=== PATIENT | female | born 1960 | race Caucasian/White ===

== ENCOUNTER → 2017-11-07 | Outpatient (CLI) | payer OTHER ==
[~2017-11-07] MED LIST: CALC500T6 PO; CHOL200025 PO; DOCU-416 PO; FLUO40CA67 PO; OXYC-865 PO; SILV20CR2 TP; SIMV5TAB60 PO; TAMO20TA24 PO; VALS1TAB63 PO; VALS1TAB67 PO
--- NOTE | 2017-11-08 10:10 | RADIOLOGY IMAGING REPORT ---
FACILITY: [facility] PATIENT NAME: KARRIE SCOTT : [id number] MR: [id number] V: [id number] EXAM DATE: [id number] ORDERING PHYSICIAN: ALONDRA SANCHEZ TECHNOLOGIST: Evi Chapman PROCEDURE:BILATERAL DIAGNOSTIC DIGITAL MAMMOGRAM WITH CAD ASSISTED INTERPRETATION & 3D TOMOSYNTHESIS COMPARISON:Prior mammograms 05/05/17, 10/01/16 INDICATIONS:HX OF BREAST CA FINDINGS: Moderately heterogeneous fibroglandular tissue is seen throughout the breasts. Again there is an area of postsurgical scaring with an architectural distortion in the medial upper Left breast. The scar appears to be lenora. Today's Left breast Ultrasound demonstrated slightly less scar tissue in the operate site. There is no evidence of malignant appearing mass, malignant appearing calcifications or other secondary sign of malignancy in either breast at this time. DIAGNOSTIC CATEGORY 2--BENIGN FINDING. RECOMMENDATIONS: ROUTINE MAMMOGRAM AND CLINICAL EVALUATION. IMPRESSION: BIRADS 2: Benign finding Loss scar tissue in the medial upper portion Left breast from previous lumpectomy it appears to be lenora. Dictated by: Mary Anne Alexis M.D. on 11/07/2017 at 17:11 Transcribed by: DANA on 11/08/2017 at 8:43 Approved by: Mary Anne Alexis M.D. on 11/08/2017 at 10:09 [facility]
--- NOTE | 2017-11-08 10:10 | RADIOLOGY IMAGING REPORT ---
[place] [facility] [place] NAME: KARRIE SCOTT : [id number] MR: [id number] V: [id number] EXAM DATE: ORDERING PHYSICIAN: ALONDRA SANCHEZ TECHNOLOGIST: Jayna Ramos PROCEDURE:US LEFT BREAST COMPARISON:Prior Left Breast Ultrasound 05/05/17 INDICATIONS:HX BREAST CA FINDINGS: In the approximate 11 o'clock position of the Left breast and location of previous lumpectomy again noted is an ovoid area of architectural distortion which appears less prominent when compared to the prior study. It now measures approximate 1.3 x 1.1 x 0.9cm as opposed to 1.35 x 1.1 x 0.9cm. The additional area seen previously just anterior to the site is not identified. DIAGNOSTIC CATEGORY 2--BENIGN FINDING. RECOMMENDATIONS: ROUTINE MAMMOGRAM AND CLINICAL EVALUATION. IMPRESSION: BIRADS 2: Benign finding The architectural distortion likely represented scar tissue in the 11 o'clock position Left breast appears slightly less prominent. Dictated by: Mary Anne Alexis M.D. on 11/07/2017 at 17:17 Transcribed by: DANA on 11/08/2017 at 8:52 Approved by: Mary Anne Alexis M.D. on 11/08/2017 at 10:09 [facility]
== END ==
LOC: MAMO 01:42
PROVIDERS: ATTEND Radiology Radiation Oncology
DX: R92.8 Other abnormal and inconclusive findings on diagnostic imaging of breast (principal)
CPT/HCPCS: 77062; 77066

== ENCOUNTER 2017-11-23 15:54 | Outpatient (RCR) | payer OTHER ==
[2017-11-22 15:11] LABS: PLATELET COUNT, AUTOMATED 264 K/uL (150-450)
[2017-11-23 16:02] VITALS: BP 112/77
--- NOTE | 2017-11-24 17:44 | ONCOLOGY FOLLOW UP NOTE ---
EVENT DATE: November 23, 2017 REASON FOR FOLLOWUP 1. Stage I ER/FL positive breast cancer. 2. Smoking. INTERIM HISTORY: Ramya returns to clinic for a follow-up visit today. Since our last visit, she has been feeling fairly well. She continues to work as a nurse. She has had some frustrations at work , related to staffing and other issues. She reports no new symptoms. She is tolerating tamoxifen without significant side effects. She is not missing doses. She has been making a very solid attempt to quit smoking. She recently had visited with a hypnotist, and had some brief success with quitting smoking. At most, she has been able to quit for a period of two weeks. She reports that usually somebody in her family or one of her friends will approach her with a cigarette and she will smoke again. She has also had periods of stress that will be a trigger for her smoking again. REVIEW OF SYSTEMS Otherwise negative, and all systems were reviewed. ONCOLOGIC HISTORY Stage I (pT1b) infiltrative ductal carcinoma of the left breast, diagnosed on October 26, 2016. * October 01, 2016: Routine screening mammogram shows left breast nodular area in zone 3 in the upper medial portion of the breast. * October 14, 2016: Left diagnostic mammogram and ultrasound. Mammogram shows a 6 mm nodule with obscured margins in the upper inner quadrant at 11 o' clock. Ultrasound shows a 5 x 3 mm nodule in this area at about 5 cm from the nipple. * October 26, 2016: Ultrasound guided core biopsy of the left breast nodule. Pathology shows an infiltrative ductal carcinoma, grade II. The tumor is estrogen receptor positive (90%), progesterone receptor positive (70%) and HER2 negative by FISH. The Ki-67 is estimated at 19.1%. P53 was absent. * November 11, 2016: Wire-guided surgical excision and sentinel lymph node evaluation. Surgical pathology reveals a 0.5 x 0.6 x 0.6 cm infiltrative ductal carcinoma, grade II. There was no evidence of lymphovascular invasion. Surgical margins were negative. Zero of 2 lymph nodes positive for tumor. This was staged as a pT1b N0 MX invasive ductal carcinoma. * November 2016 to December 2016: Adjuvant radiation therapy with Dr. Horner. * April 2017: Patient begins adjuvant endocrine therapy with tamoxifen. SOCIAL HISTORY The patient has smoked about five cigarettes a day for about forty years, but is quitting now. She has about two alcoholic beverages per day, usually wine with dinner. There is no history of illicit drug use. FAMILY HISTORY There is a family history of lung cancer in her aunt and testicular cancer in her uncle. PAST MEDICAL HISTORY 1. Reported history of osteopenia. 2. Tobacco dependence. 3. Hypercholesterolemia. 4. Hypertension. ALLERGIES SULFA. CURRENT MEDICATIONS 1. Calcium carbonate. 2. Vitamin D3. 3. Fluoxetine. 4. Silvadene cream p.r.n. 5. Simvastatin. 6. Valsartan/hydrochlorothiazide. 7, Tamoxifen 20 mg p.o. daily. VITAL SIGNS Temperature is 98.4, blood pressure 112/77, heart rate is 77, respirations 16, oxygen saturation is 98% on room air. PHYSICAL EXAMINATION GENERAL: Patient is alert and oriented times three, in no apparent distress, sitting in the exam room chair. She appears healthy. She is interactive and quite pleasant. HEENT: Exam reveals anicteric sclerae. No significant oropharyngeal lesions. NEUROLOGIC: Exam is grossly nonfocal and her gait is normal. EXTREMITIES: Exam reveals no edema, clubbing or cyanosis. There is no erythema or tenderness to palpation of the extremities. SKIN: Exam reveals no concerning rash or lesion. LABORATORY STUDIES Reviewed per the [facility] record. IMAGING Recent followup mammogram and ultrasound reveal concern for scar tissue after surgery only. No evidence of breast cancer recurrence. ASSESSMENT AND PLAN 1. Stage I ER positive breast cancer. Ramya continues on adjuvant tamoxifen, which she tolerates without significant difficulty. We discussed the importance of not missing doses. She has no concerning signs or symptoms to suggest recurrence of breast cancer. We discussed the results of her recent follow-up mammogram, which shows evidence of scar only. She will need to continue with annual mammograms moving forward. We discussed the importance of regular physical activity, as well as good nutrition. The patient is doing her best in this regard. I will plan to see her back for followup in my clinic in three months, or sooner if there are questions or concerns. 2. Smoking. It does seem that the patient is making a very good effort to try to quit. She is having difficulty, but I have encouraged her to not give up. We discussed the potential role of medications, as well as support groups and replacement products today. MARGUERITE
== END 2017-12-02 14:17 | disposition home or self-care (01) ==
LOC: ONC 15:54
PROVIDERS: ATTEND Radiology Radiation Oncology
DX: C50.912 Malignant neoplasm of unspecified site of left female breast (principal); Z17.1 Estrogen receptor negative status [ER-]; F17.210 Nicotine dependence, cigarettes, uncomplicated
CPT/HCPCS: 36415; 82040; 82247; 82310; 82374; 82435; 82565; 82947; 84075; 84132; 84155; 84295; 84450; 84460; 84520; 85025; 99212

== ENCOUNTER 2018-04-17 10:08 | Outpatient (RCR) | payer OTHER ==
[2018-04-17 10:53] VITALS: BP 124/78
[2018-04-17 11:09] LABS: PLATELET COUNT, AUTOMATED 380 K/uL (150-450)
[2018-04-19 15:31] VITALS: BP 120/82
--- NOTE | 2018-04-19 23:21 | ONCOLOGY FOLLOW UP NOTE ---
EVENT DATE: April 19, 2018 EVENT DATE: November 23, 2017 REASON FOR FOLLOWUP 1. Stage I ER/NV-positive breast cancer. 2. Smoking. INTERIM HISTORY: Ramya returns to clinic for a followup visit today. For the most part, things had been going well until recently when she took a fall while walking down the stairs with another person. Unfortunately, she ended up reportedly breaking her left humerus near the head. She is currently in a sling. She reports some ongoing pain in this area, and bruising had reportedly been pretty substantial. There is no surgery planned at this point. She reports that otherwise she has been doing well without new issues. She continues to smoke three to five cigarettes a day, unfortunately. She reports no new shortness of breath, chest pain, or productive cough. She has noticed no skin changes, and no breast lumps/bumps otherwise. Her appetite is pretty good, and her weight has been stable. She plans to return to work soon depending on status of her shoulder injury and recovery. REVIEW OF SYSTEMS Otherwise negative, and all systems were reviewed. ONCOLOGIC HISTORY Stage I (pT1b) infiltrative ductal carcinoma of the left breast, diagnosed on October 26, 2016. a. October 01, 2016: Routine screening mammogram shows left breast nodular area in zone 3 in the upper medial portion of the breast. b. October 14, 2016, left diagnostic mammogram and ultrasound: Mammogram shows a 6 mm nodule with obscured margins in the upper-inner quadrant at 11 o'clock. Ultrasound shows a 5 x 3 mm nodule in this area at about 5 cm from the nipple. c. October 26, 2016, ultrasound-guided core biopsy of the left breast nodule: Pathology shows an infiltrative ductal carcinoma, grade 2. The tumor is estrogen receptor positive (90%), progesterone receptor positive (70%), and HER- 2 negative by FISH. The Ki-67 is estimated at 19.1. P53 was absent. d. November 11, 2016, wire-guided surgical excision and sentinel lymph node evaluation. Surgical pathology reveals a 0.5 x 0.6 x 0.6 cm infiltrative ductal carcinoma, grade 2. There was no evidence of lymphovascular invasion. Surgical margins were negative. Zero of two lymph nodes positive for tumor. This was staged as a [id number] invasive ductal carcinoma. e. November 2016 to December 2016: Adjuvant radiation therapy with DrRichard quan April 2017: Patient begins adjuvant endocrine therapy with tamoxifen. SOCIAL HISTORY The patient has smoked about five cigarettes a day for about 40 years. She has about two alcoholic beverages per day, usually wine with dinner. There is no history of illicit drug use. FAMILY HISTORY There is a family history of lung cancer in her aunt and testicular cancer in her uncle. PAST MEDICAL HISTORY 1. Reported history of osteopenia. 2. Tobacco dependence. 3. Hypercholesterolemia. 4. Hypertension. ALLERGIES SULFA. CURRENT MEDICATIONS 1. Calcium carbonate. 2. Vitamin D3. 3. Fluoxetine. 4. Silvadene cream p.r.n. 5. Simvastatin. 6. Valsartan/hydrochlorothiazide. 7, Tamoxifen 20 mg p.o. daily. VITAL SIGNS Temperature is 98.5, blood pressure 120/82, heart rate is 86, respirations 16, oxygen saturation is 94% on room air. Weight is 58.5 kg. PHYSICAL EXAMINATION GENERAL: Patient is alert and oriented times three, in no apparent distress, sitting in the exam room chair. She is in good spirits and interactive. HEENT: Anicteric sclerae. NEUROLOGIC: Grossly nonfocal, and her gait is normal. EXTREMITIES: Left upper extremity in a sling. SKIN: Ecchymosis over the upper left arm. LABORATORY STUDIES Reviewed per the [employer] record. IMAGING None today. ASSESSMENT AND PLAN 1. Stage I estrogen receptor-positive breast cancer. Ramya continues on adjuvant tamoxifen. Her tolerance continues to be quite good. She has no signs or symptoms to suggest thrombosis. She has had no menstrual abnormalities. She reports no symptoms to suggest recurrence of breast cancer. As discussed, the plan will be for her to continue with tamoxifen. She will be due for a repeat DEXA scan later this year as her DEXA scan in 2015 did show osteopenia. She will be due for repeat breast imaging in October. I would like to see her back for a followup before the end of the year, and this will be arranged. I would be more than happy to see her sooner if there are questions or concerns. 2. Smoking. Unfortunately, Ramya continues to smoke cigarettes. We discussed again her risk of thrombosis on tamoxifen and that this is made higher by smoking. This also is not doing her any favors in terms of her bone mineral density and other obvious risks of smoking in general. She reports that she hopes to be done with smoking by the time that we follow up later this year. I have wished her the best of luck, and she understands the importance of quitting. MARGUERITE
== END 2018-07-16 ==
LOC: ONC 10:08
PROVIDERS: ATTEND Radiology Radiation Oncology
DX: C50.912 Malignant neoplasm of unspecified site of left female breast (principal); Z17.1 Estrogen receptor negative status [ER-]; F17.210 Nicotine dependence, cigarettes, uncomplicated
CPT/HCPCS: 36415; 82040; 82247; 82310; 82374; 82435; 82565; 82947; 84075; 84132; 84155; 84295; 84450; 84460; 84520; 85025; 99212

== ENCOUNTER 2018-05-30 15:00 | Outpatient (RCR) | payer OTHER | END 2018-06-26 14:34 | disposition home or self-care (01) | LOC: RAON 15:00 | PROVIDERS: ATTEND Radiology Radiation Oncology | DX: C50.212 Malignant neoplasm of upper-inner quadrant of left female breast (principal); Z17.0 Estrogen receptor positive status [ER+]; Z79.810 Long term (current) use of selective estrogen receptor modulators (SERMs); Z92.3 Personal history of irradiation; Z79.899 Other long term (current) drug therapy; F17.210 Nicotine dependence, cigarettes, uncomplicated | CPT/HCPCS: 99212 ==

== ENCOUNTER → 2018-09-11 | Outpatient (CLI) | payer OTHER ==
[~2018-09-11] MED LIST changes: -SIMV5TAB60 PO; +SIMV5TAB69 PO
--- NOTE | 2018-09-11 10:40 | RADIOLOGY IMAGING REPORT ---
FACILITY: [facility] [place] PATIENT NAME: Ramya Hudson : 1960 MR: [id number] V: [id number] EXAM DATE: ORDERING PHYSICIAN: DARLENE PARKS TECHNOLOGIST: Location: [facility] Patient: Ramya Hudson : 1960 Visit/Account:[id number] Date of Sevice: 09/11/2018 BONE DENSITY HISTORY: Follow-up COMPARISON: DEXA examination of 07/02/2016 FINDINGS: LUMBAR SPINE: Bone mineral density (BMD) measured from L1-L4 correlates with a Z-score of 0.3 and a T-score of -0.9 which is normal as defined by the World Health Organization. The corresponding risk of fracture in the lumbar spine is 1-2 times compared with a young adult reference population. This value has incre ased by 3.4% since the prior study. More than 5% change is considered significant. HIP: Bone mineral density (BMD) measured in the left total hip region correlates with a Z-score of -0.3 an d a T-score of -1.3 which is osteopenia as defined by the World Health Organization. The correspondi ng risk of fracture in the hip is 2-3 times compared with a young adult reference population. This v alue has increased by 0.1% since the prior study. More than 5% change is considered significant. Bone mineral density (BMD) measured in the left Femoral Neck region measures 0.825 g/cm2. T score is -1.5, osteopenia. IMPRESSION: 1. Lumbar spine: Normal. There has been no significant change in the bone mineral density since e previous exam. 2. Left Total Hip: Osteopenia. There has been no significant change in the bone mineral density si nce the previous exam. 3. Left Femoral Neck: Bone Mineral Density is 0.825 g/cm2. Osteopenia. The next DEXA scan of this patient should include the following sites: L1-L4 and left hip. FRAX? WHO Fracture Risk Assessment Tool link: <http://www.shef.ac.uk/FRAX/tool.jsp?locationValue=9> PLEASE NOTE: 1) The World Health Organization defines low BMD as follows: T-score Normal > -1 Osteopenia < -1 and > -2.5 Osteoporosis < -2.5 without fractures Established osteoporosis < -2.5 with fractures 2) In general, you may wish to consider: Diagnosis Treatment Follow-up DEXA Normal BMD Prevention 2-3 years Osteopenia Prevention/therapy 1-2 years Osteoporosis Therapy Yearly 3) Fracture risk estimated from the T-score is more accurate for vertebral fractures (often spontane ous) than for hip fractures. Report Dictated By: Supa Ambriz MD at 09/11/2018 10:33 AM Report E-Signed By: Supa Ambriz MD at 09/11/2018 10:35 AM WSN:[id number]
== END ==
LOC: RAD 09-08 13:48
PROVIDERS: ATTEND Family Medicine
DX: M85.88 Other specified disorders of bone density and structure, other site (principal); N95.1 Menopausal and female climacteric states
CPT/HCPCS: 77080

== ENCOUNTER 2018-09-27 11:42 | Outpatient (RCR) | payer OTHER ==
[2018-07-26 15:30] VITALS: BP 130/80
[2018-07-26 15:51] LABS: PLATELET COUNT, AUTOMATED 237 K/uL (150-450)
--- NOTE | 2018-08-03 01:36 | ONCOLOGY FOLLOW UP NOTE ---
EVENT DATE: July 26, 2018 REASON FOR FOLLOWUP 1. Stage I ER/IN-positive breast cancer. 2. Smoking. INTERIM HISTORY: Ramya returns to clinic for a followup visit today. She reports that things have been going pretty well. She does report some ongoing fatigue. Her left shoulder has been feeling better. She reports no severe hot flashes. She denies new and unexpected pain. Her appetite is pretty good, and her weight has been stable. She has noticed no skin changes. She reports feeling no lumps or bumps under the arms. She has had no abdominal pain or changes in bowel or bladder symptoms. REVIEW OF SYSTEMS Otherwise negative, and all systems were reviewed. ONCOLOGIC HISTORY Stage I (pT1b) infiltrative ductal carcinoma of the left breast, diagnosed on October 26, 2016. a. October 01, 2016: Routine screening mammogram shows left breast nodular area in zone 3 in the upper medial portion of the breast. b. October 14, 2016, left diagnostic mammogram and ultrasound: Mammogram shows a 6 mm nodule with obscured margins in the upper-inner quadrant at 11 o'clock. Ultrasound shows a 5 x 3 mm nodule in this area at about 5 cm from the nipple. c. October 26, 2016, ultrasound-guided core biopsy of the left breast nodule: Pathology shows an infiltrative ductal carcinoma, grade 2. The tumor is estrogen receptor positive (90%), progesterone receptor positive (70%), and HER- 2 negative by FISH. The Ki-67 is estimated at 19.1. P53 was absent. d. November 11, 2016, wire-guided surgical excision and sentinel lymph node evaluation. Surgical pathology reveals a 0.5 x 0.6 x 0.6 cm infiltrative ductal carcinoma, grade 2. There was no evidence of lymphovascular invasion. Surgical margins were negative. Zero of two lymph nodes positive for tumor. This was staged as a [id number] invasive ductal carcinoma. e. November 2016 to December 2016: Adjuvant radiation therapy with Dr. Horner. f. April 2017: Patient begins adjuvant endocrine therapy with tamoxifen. SOCIAL HISTORY The patient has smoked about five cigarettes a day for about 40 years. She has about two alcoholic beverages per day, usually wine with dinner. There is no history of illicit drug use. FAMILY HISTORY There is a family history of lung cancer in her aunt and testicular cancer in her uncle. PAST MEDICAL HISTORY 1. Reported history of osteopenia. 2. Tobacco dependence. 3. Hypercholesterolemia. 4. Hypertension. ALLERGIES SULFA. CURRENT MEDICATIONS 1. Calcium carbonate. 2. Vitamin D3. 3. Fluoxetine. 4. Silvadene cream p.r.n. 5. Simvastatin. 6. Valsartan/hydrochlorothiazide. 7, Tamoxifen 20 mg p.o. daily. PHYSICAL EXAMINATION VITAL SIGNS: Temperature is 99.1, blood pressure 130/80, heart rate 87, respirations 16, oxygen saturation 93% on room air. GENERAL: Patient is alert and oriented x3, in no apparent distress, sitting in the exam room chair. She is in good spirits and interactive. HEENT: Anicteric sclerae. NEUROLOGIC: Grossly nonfocal, and her gait is normal. EXTREMITIES: No edema, clubbing, or cyanosis. SKIN: Cursory exam reveals no concerning rash or lesion. LABORATORY STUDIES Reviewed per the [facility] record. IMAGING None today. ASSESSMENT AND PLAN Stage I estrogen receptor-positive breast cancer. Ramya continues to do pretty well on adjuvant tamoxifen. Toxicity has been minimal. She has no concerning signs or symptoms to suggest breast cancer recurrence. She will be due for repeat breast imaging in October of next year, and she also needs to get a DEXA scan performed. I have again recommended that she quit smoking, and that she pay close attention to exercise on a regular basis as well as good nutrition. The plan will be for her to continue with tamoxifen, and I will see her back, likely in October 2018, after repeat mammogram. We will review her imaging at that time. I would be more than happy to see her sooner if there are questions or concerns. MARGUERITE
[2018-09-27 12:01] VITALS: BP 117/75
[2018-09-27 12:08] LABS: PLATELET COUNT, AUTOMATED 278 K/uL (150-450)
[2018-10-13] MEDS ORDERED: CEPH500T7 PO (12:21)
[2018-10-13] MEDS ORDERED: PRED20TA6 PO (12:21)
== END 2018-10-22 ==
LOC: SPU 11:42
PROVIDERS: ATTEND Internal Medicine
DX: C50.212 Malignant neoplasm of upper-inner quadrant of left female breast (principal); Z17.1 Estrogen receptor negative status [ER-]; F17.210 Nicotine dependence, cigarettes, uncomplicated
CPT/HCPCS: 36415; 82040; 82247; 82310; 82374; 82435; 82565; 82947; 84075; 84132; 84155; 84295; 84450; 84460; 84520; 85025; 99212

== ENCOUNTER 2018-10-13 10:52 | Emergency (ER) | payer OTHER ==
--- NOTE | 2018-10-13 10:56 | ER Report ---
History and Physical Time Seen By MD: 10:56 HPI/ROS CHIEF COMPLAINT: Allergic reaction HISTORY OF PRESENT ILLNESS: This is a 58-year-old female presents to the emergency department for an allergic reaction. Patient states that about one hour prior to arrival, she started Macrobid for a urinary tract infection, she states that since then she's had systemic flushing, some hives and itching. She states she does not feel short of breath at this time however she does feel that its not quite as easily breathe. No nausea or vomiting. No chest pain. Patient states she did have an anaphylactic reaction to sulfa. Patient also took 50 mg of Benadryl, Zantac prior to arrival. REVIEW OF SYSTEMS: Constitutional: No fever, no chills. Eyes: No discharge. ENT: As above. Cardiovascular: No chest pain, no palpitations. Respiratory: No cough, no shortness of breath. Gastrointestinal: No abdominal pain, no vomiting. Genitourinary: No hematuria. Musculoskeletal: No back pain. Skin: As above. Neurological: No headache. Allergies: Coded Allergies: Sulfa (Sulfonamide Antibiotics) (Verified Allergy, Severe, ANAPHYLAXIS, 11/05/16) morphine (Verified Allergy, Intermediate, 11/05/16) Redness up her vein kiwi (Verified Allergy, Unknown, 11/05/16) miconazole (Verified Allergy, Unknown, SWELLING, 11/05/16) nitrofurantoin (Verified Allergy, Unknown, 10/13/18) Home Meds Active Scripts Cephalexin 500 Mg Tab (KEFLEX 500 MG TAB) 500 Mg Tablet, 500 MG PO BID for 7 Days, #14 TAB Prov:[facility]- 10/13/18 Prednisone (PREDNISONE) 20 Mg Tablet, 20 MG PO BID, #10 TAB Prov:[facility] 10/13/18 Reported Medications Tamoxifen Citrate (TAMOXIFEN CITRATE) 20 Mg Tablet, 20 MG PO DAILY 08/10/17 Calcium Carbonate (CALCIUM) 500 Mg Tablet, 500 MG PO QDAY 11/09/16 Cholecalciferol (Vitamin D3) (VITAMIN D3) 2,000 Unit Capsule, 2000 UNIT PO QDAY, CAPSULE 11/09/16 Valsartan/Hydrochlorothiazide (DIOVAN HCT 80-12.5 MG TABLET) 1 Each Tablet, 1 EACH PO QDAY 11/09/16 Simvastatin (SIMVASTATIN) 5 Mg Tablet, 5 MG PO HS, TAB 11/05/16 Fluoxetine Hcl (FLUOXETINE HCL) 40 Mg Capsule, 40 MG PO QDAY, CAPSULE 11/05/16 Past Medical/Surgical History The patient has a past medical and surgical history of occasional irregular heartbeat, hypertension, hypercholesterolemia, uses oxygen at night, nocturnal hypoxia, borderline emphysema, urinary tract infections, arthritis, patient with impairment, antidepressants, depression, tonsillectomy, Lasik. Reviewed Nurses Notes: Yes Hx Smoking: Yes (trying to quit smoking 2-3/day x40 yrs vaping now) Smoking Status: Current: Every Day Smoker Hx Alcohol Use: Yes Constitutional Vital Sign - Last 24 Hours 10/13/18 10/13/18 10/13/18 10/13/18 10:52 10:56 10:57 11:07 Temp 97.6 Pulse ??? 89 87 Resp 18 B/P (MAP) 151/87 (108) 151/87 Pulse Ox 93 98 O2 Delivery Room Air 10/13/18 10/13/18 10/13/18 10/13/18 11:15 11:22 11:30 11:37 Pulse 92 84 B/P (MAP) 140/82 (101) 131/78 (95) Pulse Ox 98 89 10/13/18 10/13/18 10/13/18 11:45 11:52 12:00 Pulse 84 B/P (MAP) 128/70 (89) 124/69 (87) Pulse Ox 89 Physical Exam General Appearance: The patient is alert, has no immediate need for airway protection and no signs of toxicity. Eyes: Pupils equal and round no pallor or injection. ENT, Mouth: Mucous membranes are moist. Erythema to the posterior oropharynx, no petechiae or edema. Respiratory: There are no retractions, lungs are clear to auscultation. Cardiovascular: Regular rate and rhythm, no murmurs, clicks or rubs. Gastrointestinal: Abdomen is soft and non tender, no masses, bowel sounds normal. Neurological: Alert and oriented 4. Moving all extremities. Following all this. No focal neuro deficits. Skin: Systemic flushed rash, blanchable, no hives, pruritic. Musculoskeletal: Neck is supple non tender. Extremities are nontender, nonswollen and have full range of motion. DIFFERENTIAL DIAGNOSIS: After history and physical exam differential diagnosis was considered for allergic reaction. Medical Decision Making ED Course/Re-evaluation Clinical Indication for ER IV: Hydration, IV Access ED Course The patient was admitted to a room. A history of physical were obtained. Differential diagnoses were considered. IV was started. A 1 L normal saline bolus was given. The 0.3 mg IM EpiPen, 125 mg IV Solu-Medrol, 20 mg IV famotidine, 25 mg IV Benadryl. Did monitor the patient for approximately 2 hours, patient had significant improvement of her symptoms, rash she had resolved, pruritus and basically resolved, no other respiratory concerns. Patient was started on a prednisone burst, instructed to take Benadryl as needed, follow-up with her primary care provider, I did change her Macrobid at order to Keflex, she's had this for urinary tract infections in the past. Patient was in agreement with plan of care, she had no other questions or co ncerns was discharged home. 10/13/2018 11:33:07 am improvement of the patient's symptoms, however she is still itching, given 25 mg IV Benadryl. 10/13/2018 11:42:11 am patient has significant improvement of her symptoms, the majority the itching is resolved, the rash has completely resolved at this time. Decision to Disposition Date: Oct 13, 2018 Decision to Disposition Time: 12:20 Depart Departure Latest Vital Signs Vital Signs Date Time Temp Pulse Resp B/P (MAP) Pulse Ox O2 Delivery O2 Flow Rate FiO2 10/13/18 12:00 124/69 (87) 10/13/18 11:52 84 89 10/13/18 10:57 97.6 18 Room Air Impression: Primary Impression: Allergic reaction caused by a drug Condition: Improved Disposition: HOME OR SELF-CARE Referrals: DARLENE PARKS DO (PCP) 1 Week New Scripts Cephalexin 500 Mg Tab (KEFLEX 500 MG TAB) 500 Mg Tablet 500 MG PO BID for 7 Days, #14 TAB Prov: [facility]- 10/13/18 Prednisone (PREDNISONE) 20 Mg Tablet 20 MG PO BID, #10 TAB Prov: [facility] 10/13/18 Patient Instructions: General Allergic Reaction (ED) Additional Instructions: Avoid Macrobid in the future. Drink plenty of water. Stop the Macrobid, start the Keflex for the UTI. Get plenty of rest. Take benadryl 25-50mg every 4-6 hours as needed for itching. Take prednisone for the next 5 days as prescribed. Take zyrtec or claritin once a day for the next week. Return to the ED for any other concerns or worsening symptoms. Follow up with [facility] in one week for reevaluation. Problem Qualifiers Primary Impression: Allergic reaction caused by a drug Encounter type: initial encounter Qualified Codes: T78.40XA - Allergy, unspecified, initial encounter [facility] Oct 13, 2018 10:56
[2018-10-13] MEDS ORDERED: NS(*) 0.9% 1000 ML BAG 1,000 ML IV ONE (11:05)
[2018-10-13] MEDS ORDERED: FAMOTIDINE(*) 20MG/50ML PREMIX 50 ML IVPB ONE (11:05)
[2018-10-13] MEDS ORDERED: methylPREDNIS SUCC 125 MG/2ML IVP ONE (11:05)
[2018-10-13] MEDS ORDERED: EPINEPHrine 0.3 MG SYR IM ONLY ONE (11:05)
[2018-10-13] MEDS ORDERED: diphenhydrAMINE 50 MG/ML VIAL IVP ONE (11:20)
[2018-10-13 12:00] VITALS: BP 124/69
[2018-10-13] MEDS ORDERED: CEPH500T7 PO (12:21)
[2018-10-13] MEDS ORDERED: PRED20TA6 PO (12:21)
== END 2018-10-13 12:26 | disposition home or self-care (01) ==
LOC: ER 10:59
DX: T37.8X5A Adverse effect of other specified systemic anti-infectives and antiparasitics, initial encounter (principal)
CPT/HCPCS: 96361; 96365; 96375; 99284; J0171; J1200; J2930; J3490; J7030

== ENCOUNTER → 2018-12-11 | Outpatient (CLI) | payer OTHER ==
[~2018-12-11] MED LIST changes: +CEPH500T7 PO; +PRED20TA6 PO
--- NOTE | 2018-12-14 08:24 | RADIOLOGY IMAGING REPORT ---
FACILITY: [facility] - [place] PATIENT NAME: KARRIE SCOTT : [id number] MR: [id number] V: [id number] EXAM DATE: [id number] ORDERING PHYSICIAN: MOUNIKA VINES TECHNOLOGIST: Sona Godinez PROCEDURE:BILATERAL DIGITAL SCREENING MAMMOGRAM WITH CAD ASSISTED INTERPRETATION & 3D TOMOSYNTHESIS COMPARISON:Prior mammograms 11/07/17, 05/05/17, 10/14/16, 10/01/16. INDICATIONS:SCREENING FINDINGS: The breasts are heterogeneously dense which can obscure small masses. There is an area of postsurgical scaring in the medial and upper portion of the Left breast from prior lumpectomy. The parenchymal pattern otherwise has remained stable allowing for difference in mammographic technique & patient positioning. DIAGNOSTIC CATEGORY 2--BENIGN FINDING. RECOMMENDATIONS: ROUTINE MAMMOGRAM AND CLINICAL EVALUATION. IMPRESSION: BIRADS 2: Benign finding. No significant abnormality identified at this time. Dictated by: Mary Anne Alexis M.D. on 12/12/2018 at 16:17 Transcribed by: DANA on 12/13/2018 at 9:15 Approved by: Mary Anne Alexis M.D. on 12/14/2018 at 8:23 [facility]
== END ==
LOC: MAMO 00:57
PROVIDERS: ATTEND Internal Medicine Medical Oncology
DX: Z12.31 Encounter for screening mammogram for malignant neoplasm of breast (principal)
CPT/HCPCS: 77063; 77067

== ENCOUNTER 2018-12-20 15:28 | Outpatient (RCR) | payer OTHER ==
[2018-12-20 15:39] VITALS: BP 120/78
--- NOTE | 2019-01-03 04:16 | ONCOLOGY FOLLOW UP NOTE ---
EVENT DATE: December 20, 2018 REASON FOR FOLLOWUP 1. Stage I ER/OK-positive breast cancer. 2. Smoking. INTERIM HISTORY Ramya returns to clinic for a followup visit today. She reports that things have generally been going well. She is quite happy today, because she has made significant strides in terms of quitting smoking. She states that she has essentially quit, and that she has felt generally better as a result. She does have some ongoing fatigue. She continues to work. She reports no fevers, chills, or sweats. She has had no leg swelling, redness, or pain. She denies shortness of breath, chest pain, and cough. Her appetite is good, and her weight has been stable. She is trying to get some more physical activity. She has had no abdominal pain or changes in bowel or bladder symptoms. REVIEW OF SYSTEMS Otherwise negative, and all systems are reviewed. ONCOLOGIC HISTORY Stage I (pT1b) infiltrative ductal carcinoma of the left breast, diagnosed on October 26, 2016. a. October 01, 2016: Routine screening mammogram shows left breast nodular area in zone 3 in the upper medial portion of the breast. b. October 14, 2016, left diagnostic mammogram and ultrasound: Mammogram shows a 6 mm nodule with obscured margins in the upper-inner quadrant at 11 o'clock. Ultrasound shows a 5 x 3 mm nodule in this area at about 5 cm from the nipple. c. October 26, 2016, ultrasound-guided core biopsy of the left breast nodule: Pathology shows an infiltrative ductal carcinoma, grade 2. The tumor is estrogen receptor positive (90%), progesterone receptor positive (70%), and HER- 2 negative by FISH. The Ki-67 is estimated at 19.1. P53 was absent. d. November 11, 2016, wire-guided surgical excision and sentinel lymph node evaluation. Surgical pathology reveals a 0.5 x 0.6 x 0.6 cm infiltrative ductal carcinoma, grade 2. There was no evidence of lymphovascular invasion. Surgical margins were negative. Zero of two lymph nodes positive for tumor. This was staged as a [id number] invasive ductal carcinoma. e. November 2016 to December 2016: Adjuvant radiation therapy with Dr. Horner. f. April 2017: Patient begins adjuvant endocrine therapy with tamoxifen. SOCIAL HISTORY The patient has smoked about five cigarettes a day for about 40 years. She has about two alcoholic beverages per day, usually wine with dinner. There is no history of illicit drug use. FAMILY HISTORY There is a family history of lung cancer in her aunt and testicular cancer in her uncle. PAST MEDICAL HISTORY 1. Reported history of osteopenia. 2. Tobacco dependence. 3. Hypercholesterolemia. 4. Hypertension. ALLERGIES SULFA. CURRENT MEDICATIONS 1. Calcium carbonate. 2. Vitamin D3. 3. Fluoxetine. 4. Silvadene cream p.r.n. 5. Simvastatin. 6. Valsartan/hydrochlorothiazide. 7, Tamoxifen 20 mg p.o. daily. PHYSICAL EXAMINATION VITAL SIGNS: Temperature 99.3, blood pressure 120/78, heart rate 93, respirations 16, oxygen saturation 96% on room air. Weight is 59.8 kg. GENERAL: Patient is alert and oriented x3, in no apparent distress, sitting in the exam room chair. HEENT: Anicteric sclerae. No significant oropharyngeal lesions. NEUROLOGIC: Grossly nonfocal. Her gait is normal. SKIN: No concerning rash or lesion. LABORATORY STUDIES Reviewed per the [place] record. ASSESSMENT AND PLAN Stage I estrogen receptor-positive breast cancer. Ramya continues to do quite well. She has no concerning signs or symptoms to suggest breast cancer recurrence. She takes tamoxifen without fail. She plans to continue the tamoxifen for a total of five years, and given lack of significant side effects, she is quite confident that she will be able to do so. We moved on to discuss appropriate ongoing followup and surveillance, including regular breast exams and mammograms. I stressed the importance of good nutrition and regular physical activity today. Fortunately, she has essentially been able to quit smoking, and she is confident that she will be able to stay away from cigarettes. Her recent mammogram on December 11 was encouraging, showing benign findings. All questions answered today. I will plan to see Ramya back in six months for followup, or sooner if there are questions or concerns. MARGUERITE
== END 2019-02-26 15:10 | disposition home or self-care (01) ==
LOC: ONC 15:28
PROVIDERS: ATTEND Internal Medicine
DX: C50.212 Malignant neoplasm of upper-inner quadrant of left female breast (principal)
CPT/HCPCS: 99212